=== PATIENT | male | born 1955 | race African-American/Black ===

== ENCOUNTER 2021-01-12 10:06 | Outpatient (CLI) | payer OTHER, SELFPAY ==
--- NOTE | 2021-01-12 11:00 | NEURO_ITS ---
Impression: # Complains of left foot drop for over a year. # Left peroneal neuropathy. # Abnormal needle/EMG exam. Nerve Conduction Studies Anti Sensory Summary Table Stim Site NR Peak (ms) P-T Amp (?V) Site1 Site2 Delta-P (ms) Dist (cm) Heriberto (m/s) Left Sup Fibular Anti Sensory (Ant Lat Mall) NO RESPONSE 14 cm NR 14 cm Ant Lat Mall 16.0 Left Sural Anti Sensory (Lat Mall) Calf 5.0 10.9 Calf Lat Mall 5.0 16.0 32 Motor Summary Table Stim Site NR Onset (ms) O-P Amp (mV) Site1 Site2 Delta-0 (ms) Dist (cm) Heriberto (m/s) Left Peroneal Motor (Vastus Med) NO RESPONSE Ankle NR Popit Ankle 0.0 Popit NR B Fib Ankle 0.0 B Fib NR Left Tibial Motor (Abd Simmons Brev) Ankle 5.9 3.8 Knee Ankle 10.1 45.0 45 Knee 16.0 2.3 F Wave Studies NR F-Lat (ms) L-R F-Lat (ms) Left Peroneal (Mrkrs) (EDB) DISPERSED RESPONSE NR Left Tibial (Mrkrs) (Abd Hallucis) 54.19 EMG Side Muscle Nerve Root Ins Act Fibs Amp Dur Recrt Comment Left AntTibialis Dp Br Fibular L4-5 Nml Nml Nml >12ms Reduced Left Gastroc Tibial S1-2 Nml Nml Nml Nml Nml Left Fibularis Long Sup Br Fibular L5-S1 Nml Nml Nml Nml Nml Left Flex Dig Long Tibial L5-S2 Nml Nml Nml Nml Nml Left Ext Dig Brev Dp Br Fibular L5, S1 Nml Nml ------ ------- ------- MTDD
== END 2021-01-12 10:07 | disposition home or self-care (01) ==
LOC: ANHNEURO 10:14
PROVIDERS: PCP Internal Medicine Infectious Disease; Visit Provider Internal Medicine Infectious Disease
DX: M21.372 Foot drop, left foot (principal); G62.9 Polyneuropathy, unspecified
CPT/HCPCS: 95886; 95908